=== PATIENT | female | born 1945 | race Caucasian/White ===

== ENCOUNTER → 2016-08-20 | Outpatient (CLI) | payer OTHER ==
[~2016-08-20] MED LIST: ACET-1256 PO; ALKA SELTZER PO; ASPEC81 PO; CLR10 PO; CYM/30 PO; LORA-741 PO; LOSA50TA6 PO; OXYSR10 PO; POLY335019 PO; PRLSR20 PO; RXC5 PO
[2016-08-20 13:31] LABS: BASO % 0.2 %; BASO ABS # 0.01 K/uL (0-0.2); COMPLETE YES; EOS % 2.3 %; ESTIMATED AVERAGE GLUCOSE 120 mg/dl; HA1C FLAG Normal (Normal); HEMATOCRIT 45.5 % (37-47); IG% 0.2 %; LYMPH % 32.8 %; LYMPH ABS # 1.83 K/uL (1.2-3.4); MEAN CELL VOLUME 91.7 fL (80-100); MEAN CORPUSCULAR HEMOGLOBIN 30.6 pg (25-34); MEAN CORPUSCULAR HGB CONC 33.4 g/dl (32-36); MEAN PLATELET VOLUME 10.8 fL (7.4-10.4); MONO % 9.3 %; NEUT % 55.2 %; PLATELET COUNT 246 K/uL (130-400); RED BLOOD COUNT 4.96 M/uL (4.2-5.4); WHITE BLOOD COUNT 5.58 K/uL (4.8-10.8)
[2016-08-20 18:15] LABS: ALT/SGPT 21 U/L (12-78); AST/SGOT 14 U/L (15-37); BLOOD UREA NITROGEN 15 mg/dl (7-18); BUN/CREATININE RATIO 17.1 (10-20); CALCIUM 9.5 mg/dl (8.5-10.1); CARBON DIOXIDE 28 mmol/L (21-32); CHLORIDE 108 mmol/L (98-107); CREATININE 0.86 mg/dl (0.60-1.20); GLUCOSE 125 mg/dl (70-99); SODIUM 142 mmol/L (136-145)
[2016-08-20 18:26] LABS: ALB/GLOB RATIO 1.2 (0.9-2); ALKALINE PHOSPHATASE 57 U/L (45-117); CHOLESTEROL 203 mg/dl (0-200); CHOLESTEROL/HDL RATIO 3.8; HDL CHOLESTEROL 53 mg/dl; LDL CHOLESTEROL CALCULATED 106 mg/dl; TRIGLYCERIDES 218 mg/dl (0-150); VERY LOW DENSITY LIPOPROT CALC 44 mg/dl
== END | disposition home or self-care (01) ==
LOC: C.LABMFLN 11:53
PROVIDERS: ATTEND Family Medicine
DX: I10 Essential (primary) hypertension (principal); E78.5 Hyperlipidemia, unspecified; R73.01 Impaired fasting glucose

== ENCOUNTER 2016-10-15 06:15 | Inpatient (IN) | payer OTHER ==
[2016-09-24 11:24] VITALS: BMI 31.0
--- NOTE | 2016-09-24 12:05 | PAT Medication Instructions ---
Service Date Sep 24, 2016. Current Home Medication List Acetaminophen (Tylenol), 1,000 MG PO PRN Duloxetine HCl (Cymbalta), 1 CAP PO QAM Loratadine (Claritin), 10 MG PO QAM Lorazepam (Ativan), 0.5 MG PO HS Losartan Potassium (Cozaar), 50 MG PO QAM Omeprazole (Prilosec), 40 MG PO PRN Polyethylene Glycol 3350 (Miralax), 17 GM PO QAM [Reanna Watrous], 1 TAB PO PRN Medication Instructions For Your Scheduled Surgery - Hold the following medications the morning of surgery: Polyethylene Glycol 3350 (Miralax), 17 GM PO QAM [Reanna Watrous], 1 TAB PO PRN Losartan Potassium (Cozaar), 50 MG PO QAM Loratadine (Claritin), 10 MG PO QAM - Take the following medications the morning of surgery with a sip of water OTHERWISE NOTHING TO EAT OR DRINK AFTER MIDNIGHT: Omeprazole (Prilosec), 40 MG PO PRN Acetaminophen (Tylenol), 1,000 MG PO PRN (may take if needed up to 4 hours prior to surgery) Duloxetine HCl (Cymbalta), 1 CAP PO QAM - Take the following medications as scheduled the night before surgery: Lorazepam (Ativan), 0.5 MG PO HS Acetaminophen (Tylenol), 1,000 MG PO PRN If you have any questions please call us at [phone] or [phone] or [phone]
--- NOTE | 2016-09-24 12:49 | DIAGNOSTIC IMAGING REPORT ---
CHEST PREADMISSION(PA/LAT) CLINICAL HISTORY: PAT preoperative evaluation COMPARISON STUDY: No previous studies for comparison. FINDINGS: The bones soft tissues and hemidiaphragms are normal. The cardiomediastinal silhouette is normal. The lungs are clear. The pulmonary vasculature is normal. IMPRESSION: Negative chest. Electronically signed by: Sukhwinder Earl M.D. 09/24/2016 12:47 PM Dictated Date/Time: 09/24/2016 12:47 PM
[2016-09-24 13:14] LABS: URINE APPEARANCE CLEAR (CLEAR); URINE BILIRUBIN NEG (NEG); URINE COLOR YELLOW; URINE NITRITE NEG (NEG); URINE SPECIFIC GRAVITY 1.009 (1.000-1.030); UROBILINOGEN NEG (NEG); ZZUR CULT IF INDIC CLEAN CATCH NO
[2016-09-24 13:16] LABS: MANUAL MICROSCOPIC REQUIRED? NO; REVIEW REQ? NO
[2016-09-24 13:19] LABS: INR 0.9 (0.9-1.1); PARTIAL THROMBOPLASTIN RATIO 1.1; PROTHROMBIN TIME (PATIENT) 10.1 SECONDS (9.0-12.0)
--- NOTE | 2016-10-12 12:32 | History and Physical ---
History & Physical Date Oct 12, 2016. Chief Complaint Right knee pain History of Present Illness The patient is a 71 year old female with complaints of Right knee pain. She states the pain is chronic and non-traumatic. She states it effects her ADL's. She has tried NSAIDs, cortisone injections and PT with no relief. She would like to proceed with a Right total knee arthroplasty. Past Medical/Surgical History PMHx: (1) Hypertension (2) Anxiety (3) Osteoarthritis (4) GERD PSHx; (1) Total hysterectomy (2) cholecystectomy (3) breast biopsy (4) Back fusion x 2 Additional History Hepatic Disease: No Endocrine Disorder: No Kidney Disease: No Hypertension: Yes Heart Disease: No Bleeding Tendencies: No Infectious Diseases: No Allergies Coded Allergies: Fentanyl (Unverified Allergy, Unknown, WITH PATCH NAUSEA AND VOMITING, ) Latex1 -Allergic Contact Dermititis (Unverified Allergy, Unknown, REDNESS RASH, 09/24/16) Lisinopril (Unverified Allergy, Unknown, COUGH, 09/24/16) Meloxicam (Unverified Allergy, Unknown, UNKNOWN, 09/24/16) Tramadol (Unverified Allergy, Unknown, DIZZINESS,GOOFY, 09/24/16) Home Medications Scheduled Acetaminophen (Tylenol), 1,000 MG PO PRN Duloxetine HCl (Cymbalta), 1 CAP PO QAM Loratadine (Claritin), 10 MG PO QAM Lorazepam (Ativan), 0.5 MG PO HS Losartan Potassium (Cozaar), 50 MG PO QAM Omeprazole (Prilosec), 40 MG PO PRN Polyethylene Glycol 3350 (Miralax), 17 GM PO QAM [Reanna [place]], 1 TAB PO PRN Physical Examination Skin: warm/dry, no rash Eyes: normal inspection ENT: normal ENT inspection Head: normocephalic, atraumatic Neck: supple, no adenopathy Respiratory/Chest: lungs clear, normal breath sounds Cardiovascular: regular rate, rhythm, no murmur Abdomen / GI: normal bowel sounds, non tender Extremities: normal inspection, + pertinent finding (Decreased knee ROM on the right side, Lateral joint pain.) Neurologic/Psych: no motor/sensory deficits, alert, oriented x 3 Diagnosis Right knee Primary osteoarthritis Plan of Treatment Patient has failed conservative therapy on NSAIDs, Cortisone injections and PT. We discussed surgical procedures. She would like to proceed with a Right Total Knee arthroplasty. She will be scheduled for a Right total knee arthroplasty. Risks and benefits to surgery were discussed that include but not limit to infection, DVT, pain, stiffness, need for revision surgery, damage to blood vessels, damage to nerves, PE, and anesthesia risks were all discussed with the patient and they wish to proceed. She will have Aspirin 81mg BID for DVT prophylaxis.
[~2016-10-15] VITALS: Ht 160 cm; Wt 79.5 kg
[2016-10-15] VITALS (8 sets, daily range): BP systolic 148–164; BP diastolic 87–105; PULSE 79–100; TEMP 36.5–36.9; O2SAT 95–98; Ht 160 cm; Wt 79.5 kg
[~2016-10-15 06:15] MED LIST changes: +ACETAMINOPHEN 500 MG TAB PO SCH; -ASPEC81 PO; +CEFAZOLIN 1000MG/55 ML D5W 55 ML IV SCH; +CeleBREX 200 MG CAP PO SCH; +DEXAMETHASONE 4 MG TAB PO SCH; +FAMOTIDINE 20 MG TAB PO SCH; +GABAPENTIN 300 MG CAP PO SCH; +LACTATED RINGER'S 1000ML 1,000 ML IV SCH; +LACTATED RINGER'S 1000ML 500 ML IV ONE; +LACTATED RINGER'S 1000ML IV SCH; +METOCLOPRAMIDE HCL 10 MG TAB PO SCH; -OXYSR10 PO; +ROPIVACAINE 5MG/ML 30 ML 150 MG, BUPIVACAINE/EPINEPHR 0.5% MPF 30 ML, DEXAMETHASONE INJ... INFIL SCH; -RXC5 PO; +VANCOMYCIN 1GM/270ML NSS IV SCH
[2016-10-15] MEDS ORDERED: BUPIVACAINE 0.5 % 5 MG/1 ML PF 10ML VIAL ONE (06:29)
[2016-10-15] MEDS ORDERED: PHENYLEPHRINE 100MCG/ML 5ML SYR ONE (07:10)
[2016-10-15] MEDS ORDERED: PROPOFOL IV EMULSION 10 MG/ML 20 ML VIAL IV ONE ×2 (07:10→09:07)
[2016-10-15] MEDS ORDERED: LIDOCAINE HCL 2% 2 ML VIAL (20MG/ML) ONE (07:10)
[2016-10-15] MEDS ORDERED: EpHEDrine SULFATE 50MG/5ML SYR ONE (07:10)
[2016-10-15] MEDS ORDERED: FENTANYL CITRATE INJ 50 MCG/1 ML 2 ML VIAL ONE (07:11)
[2016-10-15] MEDS ORDERED: MIDAZOLAM HCL 1 MG/ML 2ML VIAL ONE (07:11)
[2016-10-15] MEDS ORDERED: NURSING VERBAL MED ORDER STA (07:26)
--- NOTE | 2016-10-15 07:43 | History & Physical Bridge Note ---
H&P Re-Evaluation Bridge Note: I have examined the patient, reviewed the History & Physical and in the interval since the performance of the History & Physical I have noted the following changes of clinical significance: No changes noted
[2016-10-15] MEDS: TRANEXAMIC ACID AMP 1,000 MG in NSS 100ML IV SCH ×2 (07:52→08:00)
[2016-10-15] MEDS ORDERED: POVIDONE-IODINE OP SOLN 30 ML BTL ONE (07:58)
[2016-10-15] MEDS ORDERED: BACITRACIN 50000 UNIT VIAL ONE (07:58)
[2016-10-15] MEDS ORDERED: ATROPINE SULFATE 0.1 MG/ML 5ML SYR IV PRN (08:15)
[2016-10-15] MEDS ORDERED: ONDANSETRON INJ 2 MG/ML 2 ML VIAL IV PRN ×2 (08:15→10:30)
[2016-10-15] MEDS ORDERED: EpHEDrine SULFATE INJ 50 MG/ML AMP IV PRN (08:15)
[2016-10-15] MEDS ORDERED: BUPIVACAINE LIPOSOME 1/3% 266 MG/20 ML VIAL INFIL ONE (09:15)
[2016-10-15] MEDS ORDERED: BUPIVACAINE/EPINEPHRINE 0.25% 10 ML VIAL ONE (09:16)
[2016-10-15] MEDS ORDERED: SODIUM CHLORIDE 0.9% PF 50 ML VIAL ONE (09:17)
[2016-10-15] MEDS ORDERED: MAGNESIUM HYDROXIDE SUSP 30 ML UDC PO PRN (10:30)
[2016-10-15] MEDS ORDERED: ALUMINUM/MAGNESIUM/SIMETH (MAALOX MAX) 30 ML UDC PO PRN (10:30)
[2016-10-15] MEDS ORDERED: SOD PHOSPHATE/SOD BIPHOSPHATE ENEMA 132 ML BTL PR PRN (10:30)
[2016-10-15] MEDS ORDERED: BISACODYL 10 MG SUPP PR PRN (10:30)
[2016-10-15] MEDS ORDERED: ZOLPIDEM TARTRATE 5 MG TAB PO PRN (10:30)
--- NOTE | 2016-10-15 10:41 | DIAGNOSTIC IMAGING REPORT ---
TWO VIEWS RIGHT KNEE CLINICAL HISTORY: Postoperative examination. FINDINGS: AP and crosstable lateral portable views of the right knee are obtained. A right knee arthroplasty is in near anatomic alignment. There has been undersurface remodeling of the patella. No acute fracture is seen. There are expected postoperative changes around the knee including skin clips, soft tissue edema, and subcutaneous gas. IMPRESSION: Expected postoperative changes status post right knee arthroplasty. No acute fracture is seen. Electronically signed by: Aron Mccarthy M.D. 10/15/2016 10:40 AM Dictated Date/Time: 10/15/2016 10:40 AM
--- NOTE | 2016-10-15 11:31 | Anesthesiology Progress Note ---
Anesthesia Post Op Note Date & Time Oct 15, 2016 at 11:31 Vital Signs Pain Intensity: 0 Vital Signs Past 12 Hours Date Time Temp Pulse Resp B/P (MAP) Pulse Ox O2 Delivery O2 Flow Rate FiO2 10/15/16 10:45 36.2 90 16 137/85 98 Nasal Cannula 2 10/15/16 10:35 36.2 96 16 144/85 94 Nasal Cannula 2 10/15/16 10:25 96 16 140/94 96 Nasal Cannula 2 10/15/16 10:15 99 16 139/86 96 Mask 10 10/15/16 10:07 36.4 109 16 151/85 97 Mask 10 10/15/16 06:52 36.9 87 20 148/99 97 Room Air Notes Mental Status: alert / awake / arousable, participated in evaluation Pt Amnestic to Procedure: Yes Nausea / Vomiting: adequately controlled Pain: adequately controlled Airway Patency, RR, SpO2: stable & adequate BP & HR: stable & adequate Hydration State: stable & adequate Neuraxial Anesthesia: was administered, sensory block is resolving Anesthetic Complications: no major complications apparent
[2016-10-15] MEDS: SODIUM CHLORIDE 0.9% 1000ML 1,000 ML IV SCH ×2 (12:24→21:25)
[2016-10-15] MEDS: FERROUS GLUCONATE 324 MG TAB PO SCH ×2 (12:28→17:53)
--- NOTE | 2016-10-15 12:37 | [facility] Operative Report ---
Operative Report Operative Date Oct 15, 2016. Pre-Operative Diagnosis Right Knee Primary Osteoarthritis Post-Operative Diagnosis Right Knee Primary Osteoarthritis Procedure(s) Performed Right Total Knee Arthroplasty Surgeon Dr. Jose Pizano Scientific Technical Writer Surgeon(s) Catrachito Conner PA-C Estimated Blood Loss 50ML Findings above Specimens A. Right Knee Bone and Tissue Drains 0 Anesthesia spinal Complication(s) None Disposition Recovery Room / PACU Indications 71-year-old female with long-standing posterior arthritis the right knee. She is [id number]. She is failed conservative measures including injection and she is allergic to anti-inflammatories. She wishes to proceed with right total knee arthroplasty. Description of Procedure Risks benefits and alternatives of surgery including but not limited to infection DVT pain stiffness need for surgery damage to blood vessels damage to nerves or risks of anesthesia were discussed with the patient and she wished to proceed. Patient was identified in the laterality was confirmed and marked. She received a preoperative antibiotic is also a spinal anesthetic and a abductor canal block. A well-padded tourniquet was applied and then the limb was prepped and draped in standard manner with ChloraPrep. The limb was exsanguinated and the tourniquet was inflated. I made a standard anterior incision. I sharply incised the skin then utilized Bovie electrocautery as well as the aqua mantis to achieve hemostasis. I made a medial parapatellar arthrotomy immobilized the patella laterally. I then excised the anterior horns of the medial and lateral meniscus as well as the infrapatellar fat pad. I elevated a portion of the MCL off of the tibia. I then pinned into place a patient-matched distal femoral cutting guide and made my distal femoral resection. I then pinned into place a size 4 5 in 1 cutting guide. I made my anterior, posterior and chamfer cuts. I then excised the cruciates and the remaining portions of the menisci. I then pinned into place a patient- matched tibial cutting guide and made my tibial resection. I then pinned into place a size 3 tibia utilizing alignment rods to confirm rotation. I then cut for the post. Utilizing a lamina fitting supervisor and then removed posterior osteophytes off the femur. I then placed a trial femur into position and cut for the trochlear component. I then sequentially trialed to size 11 polyethylene. There was good soft tissue balancing and range of motion with this polyethylene. I then prepared the patella with a freehand cut utilizing sagittal saw. I sized and drilled for a size 32 patella. There was good tracking to the patella no lateral release was needed. All the trial components were removed. The deep tissues were anesthetized with and ortho mix solution. Then with Simplex HV with gentamicin cement I cemented my definitive components. Definitive components, [employer] 2: Femur 4 Tibia 3 Poly 11 Patella 32 oval Betadine soak was performed. The arthrotomy was closed with interrupted #1 Vicryl suture subcutaneous tissue was closed with interrupted 2-0 Vicryl suture and skin with jakob. Sterile dressings applied and the tourniquet was released. All needle and sponge counts were correct at the end of the procedure patient was transferred to the PACU in stable condition without apparent complication. The PA-C was necessary for assistance with procedure for assistance in positioning, prepping, draping, retraction and closure. I attest to the content of the Intraoperative Record and any orders documented therein. Any exceptions are noted below.
[2016-10-15] MEDS: OXYCODONE HCL IR 5 MG TAB (IMMEDIATE RELEASE) PO PRN ×2 (13:25→19:29)
[2016-10-15] MEDS: CEFAZOLIN IV 1,000 MG in DEXTROSE 5% 50ML 50 ML IV SCH ×2 (15:36→23:23)
[2016-10-15] MEDS ORDERED: OXYSR10 PO (16:52)
[2016-10-15] MEDS ORDERED: RXC5 PO (16:52)
[2016-10-15] MEDS ORDERED: LORAZEPAM 0.5 MG TAB PO SCH (21:00)
[2016-10-15] MEDS ORDERED: SENNA 8.6 MG TAB PO SCH (21:00)
[2016-10-15] MEDS: OXYCODONE HCL 10 MG TABCR (OXYCONTIN) PO SCH (21:24)
[2016-10-15] MEDS: DOCUSATE SODIUM 100 MG CAP PO SCH (21:25)
[2016-10-15] MEDS: ASPIRIN 81 MG ECTAB PO SCH (21:25)
[2016-10-15] MEDS: ACETAMINOPHEN 500 MG TAB PO SCH (21:26)
--- NOTE | 2016-10-15 21:40 | Medical Consult ---
Consultation Date of Consultation: Oct 15, 2016. Attending Physician: Jose Pizano M.D. Reason for Consultation: Elevated BP History of Present Illness Ms Galeas is a 71 yo F day 0 s/p R TKA today. We were consulted for elevated BP. The pt reports she has been on Losartan 50mg for years, but did not take it yet since it is an AM medication. She feels it is up due to the pain. She denies any visual changes or chest pain. She feels her knee pain is returning but it is manageable. Past Medical/Surgical History Medical Problems: Right knee DJD HTN PSHx R knee TKA Family History No pertinent FHx Social History Smoking Status: Never Smoker Alcohol Use: none Drug Use: none Marital Status: Housing Status: lives with family Occupation Status: retired Allergies Coded Allergies: Fentanyl (Unverified Allergy, Unknown, WITH PATCH NAUSEA AND VOMITING, 10/15) Latex1 -Allergic Contact Dermititis (Unverified Allergy, Unknown, REDNESS RASH, 10/15/16) Lisinopril (Unverified Allergy, Unknown, COUGH, 10/15/16) Tramadol (Unverified Allergy, Unknown, DIZZINESS,GOOFY, 10/15/16) Meloxicam (Unverified Adverse Reaction, Unknown, PT STATED IT JUST MADE HER DIZZY, HEAD FELT FUNNY, 10/15/16) Home Medications Reported Home Medications Medications Dose Route/Sig Max Daily Dose Days Date Category Oxycontin (Oxycodone HCl) 10 Mg Tabcr 10 Mg PO Q12 10/15/16 Rx Oxycodone HCl 5 Mg Tab 1-2 Tabs PO Q4-6H 10/15/16 Rx Tylenol (Acetaminophen) 500 Mg Tab 1,000 Mg PO PRN 09/24/16 Reported [Reanna Danielson] 1 Tab PO PRN 09/24/16 Reported Miralax (Polyethylene Glycol 3350) 1 Pow Pow 17 Gm PO QAM 09/24/16 Reported Prilosec (Omeprazole) 20 Mg Capcr 40 Mg PO PRN 09/24/16 Reported Cozaar (Losartan Potassium) 50 Mg Tab 50 Mg PO QAM 09/24/16 Reported Ativan (Lorazepam) 0.5 Mg Tab 0.5 Mg PO HS 09/24/16 Reported Claritin (Loratadine) 10 Mg Tab 10 Mg PO QAM 09/24/16 Reported Cymbalta (Duloxetine HCl) 30 Mg Cap 1 Cap PO QAM 30 09/24/16 Reported Current Inpatient Medications Current Inpatient Medications Medications (Trade) Dose Ordered Sig/Tylor Route Start Time Stop Time Status Last Admin Dose Admin Vancomycin HCl 270 ml @ 125 mls/hr PREOP IV 10/15/16 06:00 10/16/16 05:59 10/15/16 07:20 125 MLS/HR Sodium Chloride 1,000 ml @ 100 mls/hr Q10H IV 10/15/16 11:45 10/16/16 11:44 10/15/16 21:25 100 MLS/HR Cefazolin Sodium 1000 mg/Dextrose 55 ml @ 100 mls/hr Q8@0000,0800,1600 IV 10/15/16 16:00 10/16/16 00:32 10/15/16 15:36 100 MLS/HR Oxycodone HCl (Roxicodone Immediate Rel Tab) 1 TABLET FOR PAIN RATING... Q4H PRN PO 10/15/16 10:30 10/29/16 10:29 10/15/16 19:29 5 MG Oxycodone HCl (Oxycontin Tab) 10 mg Q12 PO 10/15/16 21:00 10/29/16 20:59 10/15/16 21:24 10 MG Acetaminophen (Tylenol Tab) 1,000 mg Q8 PO 10/15/16 22:00 11/14/16 21:59 10/15/16 21:26 1,000 MG Magnesium Hydroxide (Milk Of Magnesia Susp) 30 ml Q6H PRN PO 10/15/16 10:30 11/14/16 10:29 Bisacodyl (Dulcolax Supp) 10 mg DAILY PRN [place] 10/15/16 10:30 11/14/16 10:29 Sodium Biphosphate/ Sodium Phosphate (Fleet Enema) 132 ml DAILY PRN [place] 10/15/16 10:30 11/14/16 10:29 Senna (Senokot Tab) 17.2 mg HS PO 10/15/16 21:00 11/14/16 20:59 10/15/16 21:25 17.2 MG Docusate Sodium (coLACE CAP) 100 mg BID PO 10/15/16 21:00 11/14/16 20:59 10/15/16 21:25 100 MG Al Hydrox/Mg Hydrox/Simethicone (Maalox Max Susp) 15 ml Q4H PRN PO 10/15/16 10:30 11/14/16 10:29 Zolpidem Tartrate (Ambien Tab) 5 mg HSZ PRN PO 10/15/16 10:30 11/14/16 10:29 Multivitamins (Multivitamin Tab) 1 tab QAM PO 10/16/16 09:00 11/15/16 08:59 Ondansetron HCl (Zofran Inj) 4 mg Q6H PRN IV 10/15/16 10:30 11/14/16 10:29 Ferrous Gluconate (Ferrous Gluconate Tab) 324 mg TIDM PO 10/15/16 12:30 11/14/16 12:29 10/15/16 17:53 324 MG Pantoprazole Sodium (Protonix Tab) 40 mg QAM PO 10/16/16 09:00 11/15/16 08:59 Aspirin (Ecotrin Tab) 81 mg BID PO 10/15/16 21:00 11/14/16 20:59 10/15/16 21:25 81 MG Duloxetine HCl (Cymbalta Cap) 30 mg QAM PO 10/16/16 09:00 11/15/16 08:59 Loratadine (Claritin Tab) 10 mg QAM PO 10/16/16 09:00 11/15/16 08:59 Lorazepam (Ativan Tab) 0.5 mg HS PO 10/15/16 21:00 11/14/16 20:59 10/15/16 21:24 0.5 MG Losartan Potassium (coZAAR TAB) 50 mg QAM PO 10/16/16 09:00 11/15/16 08:59 Review of Systems See HPI for pertinent positives & negatives. A total of 10 systems reviewed and were otherwise negative. Physical Exam Date Time Temp Pulse Resp B/P (MAP) Pulse Ox O2 Delivery O2 Flow Rate FiO2 10/15/16 19:30 Room Air 10/15/16 15:30 Nasal Cannula 3.0 10/15/16 15:00 36.6 100 16 162/105 (124) 98 Nasal Cannula 3.0 10/15/16 14:00 87 18 164/98 (120) 98 10/15/16 13:01 89 16 162/102 (122) 95 Nasal Cannula 2.0 10/15/16 12:00 85 18 159/95 (116) 98 10/15/16 11:30 36.7 79 16 157/96 (116) 97 Nasal Cannula 2.0 10/15/16 11:00 98 Nasal Cannula 2.0 10/15/16 11:00 98 Nasal Cannula 2.0 10/15/16 11:00 36.5 92 16 163/88 (113) 95 Nasal Cannula 2.0 10/15/16 10:45 36.2 90 16 137/85 98 Nasal Cannula 2 10/15/16 10:35 36.2 96 16 144/85 94 Nasal Cannula 2 10/15/16 10:25 96 16 140/94 96 Nasal Cannula 2 10/15/16 10:15 99 16 139/86 96 Mask 10 10/15/16 10:07 36.4 109 16 151/85 97 Mask 10 10/15/16 06:52 36.9 87 20 148/99 97 Room Air General Appearance: WD/WN, no apparent distress, + thin Head: normocephalic, atraumatic Eyes: normal inspection ENT: hearing grossly normal Neck: supple, no JVD Respiratory/Chest: lungs clear, normal breath sounds, no respiratory distress Cardiovascular: regular rate, rhythm, no murmur, normal peripheral pulses Abdomen/GI: non tender Back: no CVA tenderness, no muscle spasm Extremities/Musculoskelatal: no calf tenderness Neurologic/Psych: alert, normal mood/affect, oriented x 3 Skin: no rash Assessment & Plan 71 yo F day 0 s/p R TKA, found to have mild elevation in BP, without evidence of end organ damage, likely due to pre-operatively holding her anti- hypertensives. Recommendations: - Losartan to be restarted tomorrow AM. Her elevated BP could be in relation to her pain, so will have the RN recheck after pain medications are given. - If her BP starts to elevate over night, would start Losartan PO at that time or provide Hydralazine 10mg IV q6h for SBP > 160 - BMP in AM to ensure renal fxn adequate. Thank you for allowing us to participate in the care of Ms Oconnor. Resident Physician Supervision Note: Pt seen/examined independently. I discussed the case with the resident and agree with the findings and plan as documented in the note. Any exceptions or clarifications are listed here: 71 y/o F HTN - post R TKA - medicine consulted due to post-op elevated BP OE AAO x 3 S1,2 R CTAB NT, ND No CCE P: Pt placed back on Losartan an PRN Hydralazine Discussed wt pt and resident Documented By: Dereck Elias Resident Tracking Resident Involvement: Resident Care Provided Care Provided: Adult Hospital Medicine
--- NOTE | 2016-10-15 21:58 | Discharge Instructions ---
Discharge Instructions Date of Service Oct 15, 2016. Admission Reason for Admission: Right Knee Osteoarthritis Discharge Discharge Diagnosis / Problem: S/P Right total knee arthroplasty Discharge Goals Goal(s): Decrease discomfort, Improve function Activity Recommendations Activity Limitations: per Instructions/Follow-up section . Instructions / Follow-Up Instructions / Follow-Up ACTIVITY RECOMMENDATIONS: SELF CARE INSTRUCTIONS AFTER TOTAL KNEE REPLACEMENT A. You may need to continue a physical therapy program after discharge from the hospital. There are several options available to you. Your doctor will assist you in selecting the best one for you. 1. An out-patient facility 2 to 3 times a week for therapy or home therapy. 2. Continue working on all exercises taught to you in the hospital. Your goals should be to increase bending of your knee to 90 degrees and beyond and to fully straighten your knee. B. You may progress at your own pace from walking with a walker or crutches to a cane; then to no assistive devices. C. Make walking a part of your daily routine. Be up as much as comfortable with rest periods throughout the day. Rest with leg elevation is very important. Use the ice wrap frequently for the first 3-4 weeks. D. There are no restrictions on activities. You may ride in a car, shop, participate in soil science professor and all social activities. E. Wear the long elastic stockings (MIR hose) 20 hours a day for 2 weeks after surgery. They can be removed several times a day for laundering and for a bath. F. You may shower, no tub baths until cleared by your doctor. SPECIAL CARE INSTRUCTIONS: VERY IMPORTANT TO READ AND REVIEW A. There are a few signs you need to watch for after you are home. Call [facility] if you notice any of the followin. Increased severe knee pain. Some pain is expected especially when you exercise. 2. Increased swelling in your leg or knee; pain or swelling of the calf muscle in either lower leg. 3. Any fluid drainage from the incision. 4. Shortness of breath or chest pain. B. Please call [facility] at if you have any concerns or questions about your operation or recovery. The doctor or his nurse will return your call promptly. C. You must take antibiotics before dental work, bladder, bowel or other surgery. Your doctor will provide you with a permanent care to carry describing this precaution. IMPORTANT: * REMEMBER TO TAKE ASPIRIN, 81 MG, TWICE DAILY FOR 4 WEEKS UNLESS OTHERWISE DIRECTED. THIS IS YOUR BLOOD THINNER. * HIGH RISK PATIENTS MAY BE PRESCRIBED A STRONGER BLOOD THINNER. THIS WILL BE PROVIDED AT DISCHARGE. * CALL IF INCREASED PAIN, REDNESS, DRAINAGE OR FEVER GREATER THAT 101. * WEAR MIR HOSE 20 HOURS PER DAY FOR 2 WEEKS. * YOU MAY HAVE A LARGE BAND-AID LIKE DRESSING (SILVERON). THIS WILL REMAIN ON YOUR INCISION FOR 7 DAYS, THEN CAN BE REMOVED. IF INCISION IS LEAKING THROUGH DRESSING, CALL THE OFFICE . FOLLOW UP VISIT: If appointment is not already scheduled: Please call [facility] to make a follow-up appointment for 2 weeks after your surgery at . Current Hospital Diet Patient's current hospital diet: Regular Diet Discharge Diet Recommended Diet: Regular Diet Procedures Procedures Performed: Right Total Knee Arthroplasty Pending Studies Studies pending at discharge: no Laboratory Results Hemoglobin A1c Test 08/20/16 12:03 Range/Units Estimated Average Glucose 120 mg/dl Hemoglobin A1c 5.8 H 4.5-5.6 % Lipid Panel Test 08/20/16 12:03 Range/Units Triglycerides Level 218 H 0-150 mg/dl Cholesterol Level 203 H 0-200 mg/dl HDL Cholesterol 53 mg/dl Cholesterol/HDL Ratio 3.8 LDL Cholesterol, Calculated 106 mg/dl Medical Emergencies . Who to Call and When: Medical Emergencies: If at any time you feel your situation is an emergency, please call 911 immediately. . Non-Emergent Contact Non-Emergency issues call your: Surgeon Call Non-Emergent contact if: temperature is above 101.5, your pain is worsening, wound has increased drainage, wound has increased redness . "Provider Documentation" section prepared by Catrachito Conner. . VTE Core Measure Inpt VTE Proph given/why not?: Other Anticoagulation [place] Drug Monitoring Program Search Results: patient reviewed within database, no issues identified
[2016-10-16 04:00] VITALS: BP 154/92; PULSE 97; TEMP 36.6; O2SAT 96
[2016-10-16] MEDS: ACETAMINOPHEN 500 MG TAB PO SCH ×2 (05:51→12:52)
[2016-10-16 06:02] LABS: HEMATOCRIT 35.2 % (37-47); MEAN CELL VOLUME 91.4 fL (80-100); MEAN CORPUSCULAR HEMOGLOBIN 31.4 pg (25-34); MEAN CORPUSCULAR HGB CONC 34.4 g/dl (32-36); PLATELET COUNT 212 K/uL (130-400); RED BLOOD COUNT 3.85 M/uL (4.2-5.4); WHITE BLOOD COUNT 13.01 K/uL (4.8-10.8)
[2016-10-16 06:11] LABS: PROTHROMBIN TIME (PATIENT) 10.2 SECONDS (9.0-12.0)
[2016-10-16 06:43] LABS: BUN/CREATININE RATIO 14.6 (10-20); CALCIUM 9.2 mg/dl (8.5-10.1); CREATININE 0.97 mg/dl (0.60-1.20); POTASSIUM 4.1 mmol/L (3.5-5.1)
--- NOTE | 2016-10-16 06:51 | Orthopedic Progress Note ---
Orthopedic Progress Note Date of Service Oct 16, 2016. Subjective Post OP Day: 1 Reports: feeling well, pain controlled w PO medications, Denies: complaints, chest pain, SOB, nausea / vomiting, light headedness, calf pain Additional Notes: Patient states she is feeling well. She states there is some calf pain when she moves her calf but it is ok overall. Objective calves soft nontender, N/V intact, capillary refill less than 2 sec., dressing C /D/I, A&O x3, toes mobile Dressing was clean, dry and intact. Her toes were mobile. No significant pain with palpation of the calf muscle or Norris test. Date Time Temp Pulse Resp B/P (MAP) Pulse Ox O2 Delivery O2 Flow Rate FiO2 10/16/16 04:00 36.6 97 20 154/92 (112) 96 Room Air 10/15/16 22:55 36.5 92 16 149/87 (107) 95 Room Air 10/15/16 19:30 Room Air 10/15/16 15:30 Nasal Cannula 3.0 10/15/16 15:00 36.6 100 16 162/105 (124) 98 Nasal Cannula 3.0 10/15/16 14:00 87 18 164/98 (120) 98 10/15/16 13:01 89 16 162/102 (122) 95 Nasal Cannula 2.0 10/15/16 12:00 85 18 159/95 (116) 98 10/15/16 11:30 36.7 79 16 157/96 (116) 97 Nasal Cannula 2.0 10/15/16 11:00 98 Nasal Cannula 2.0 10/15/16 11:00 98 Nasal Cannula 2.0 10/15/16 11:00 36.5 92 16 163/88 (113) 95 Nasal Cannula 2.0 10/15/16 10:45 36.2 90 16 137/85 98 Nasal Cannula 2 10/15/16 10:35 36.2 96 16 144/85 94 Nasal Cannula 2 10/15/16 10:25 96 16 140/94 96 Nasal Cannula 2 10/15/16 10:15 99 16 139/86 96 Mask 10 10/15/16 10:07 36.4 109 16 151/85 97 Mask 10 10/15/16 06:52 36.9 87 20 148/99 97 Room Air Laboratory Results 24 Hours: Test 10/16/16 05:14 Hematocrit 35.2 % Hemoglobin 12.1 g/dL Prothromb Time International Ratio 1.0 Prothrombin Time 10.2 SECONDS Assessment & Plan Assessment: POD #1 Right TKA Plan: PT/OT Discharge planning - Home with H/H DVT prophylaxis - ASA Patient is doing well. She will be seen by social work professor and PT this morning. If everything is ok, we could get her discharged today. There is no drain. Agree with above Inhouse Planning Pain Management: Oxycontin, Oxy IR DVT Prophylaxis: TEDs, SCDs, ASA Discharge Planning Discharge Planning: home with home health Pain Management: Oxycontin, Oxy IR DVT Prophylaxis: TEDs, ASA Therapy: Physical Therapy
[2016-10-16] MEDS: SODIUM CHLORIDE 0.9% 1000ML 1,000 ML IV SCH (06:52)
[2016-10-16] MEDS ORDERED: ASPEC81 PO (07:04)
[2016-10-16 07:20] VITALS: BP 144/81; PULSE 92; TEMP 36.7; O2SAT 93
[2016-10-16] MEDS ORDERED: NURSING VERBAL MED ORDER ONE (08:15)
[2016-10-16] MEDS: OXYCODONE HCL 10 MG TABCR (OXYCONTIN) PO SCH (08:22)
[2016-10-16] MEDS: ASPIRIN 81 MG ECTAB PO SCH (08:22)
[2016-10-16] MEDS: DOCUSATE SODIUM 100 MG CAP PO SCH (08:22)
[2016-10-16] MEDS: FERROUS GLUCONATE 324 MG TAB PO SCH ×2 (08:23→12:52)
[2016-10-16] MEDS ORDERED: POLYETHYLENE (MIRALAX) 17 GM PACK PO PRN (08:30)
[2016-10-16] MEDS ORDERED: LOSARTAN POTASSIUM 50 MG TAB PO SCH (09:00)
[2016-10-16] MEDS ORDERED: DULOXETINE (CYMBALTA) 30 MG CAP PO SCH (09:00)
[2016-10-16] MEDS ORDERED: MULTIVITAMIN TAB PO SCH (09:00)
[2016-10-16] MEDS ORDERED: PANTOprazole SOD 40 MG TAB PO SCH (09:00)
[2016-10-16] MEDS ORDERED: LORATADINE 10 MG TAB PO SCH (09:00)
--- NOTE | 2016-10-16 11:29 | Family Medicine Progress Note ---
Progress Note Date of Service Oct 16, 2016. Subjective Pt evaluation today including: conversation w/ patient, physical exam, chart review, conversation w/ environmental remediation consultant, review of inpatient medication list Pain: well controlled Voiding: no voiding problems pain well controlled mild SOB at rest hasn't had bowel movement, takes miralax at home Constitutional: No fever, No chills Respiratory: + dyspnea at rest, No cough, No sputum, No wheezing Cardiovascular: No chest pain, No edema, No palpitations Abdomen: No pain, No nausea, No vomiting Medications Current Inpatient Medications Medications (Trade) Dose Ordered Sig/Tylor Route Start Time Stop Time Status Last Admin Dose Admin Sodium Chloride 1,000 ml @ 100 mls/hr Q10H IV 10/15/16 11:45 10/16/16 11:44 10/16/16 06:52 100 MLS/HR Oxycodone HCl (Roxicodone Immediate Rel Tab) 1 TABLET FOR PAIN RATING... Q4H PRN PO 10/15/16 10:30 10/29/16 10:29 10/15/16 19:29 5 MG Oxycodone HCl (Oxycontin Tab) 10 mg Q12 PO 10/15/16 21:00 10/29/16 20:59 10/16/16 08:22 10 MG Acetaminophen (Tylenol Tab) 1,000 mg Q8 PO 10/15/16 22:00 11/14/16 21:59 10/16/16 05:51 1,000 MG Magnesium Hydroxide (Milk Of Magnesia Susp) 30 ml Q6H PRN PO 10/15/16 10:30 11/14/16 10:29 Bisacodyl (Dulcolax Supp) 10 mg DAILY PRN IA 10/15/16 10:30 11/14/16 10:29 Sodium Biphosphate/ Sodium Phosphate (Fleet Enema) 132 ml DAILY PRN IA 10/15/16 10:30 11/14/16 10:29 Senna (Senokot Tab) 17.2 mg HS PO 10/15/16 21:00 11/14/16 20:59 10/15/16 21:25 17.2 MG Docusate Sodium (coLACE CAP) 100 mg BID PO 10/15/16 21:00 11/14/16 20:59 10/16/16 08:22 100 MG Al Hydrox/Mg Hydrox/Simethicone (Maalox Max Susp) 15 ml Q4H PRN PO 10/15/16 10:30 11/14/16 10:29 Zolpidem Tartrate (Ambien Tab) 5 mg HSZ PRN PO 10/15/16 10:30 11/14/16 10:29 Multivitamins (Multivitamin Tab) 1 tab QAM PO 10/16/16 09:00 11/15/16 08:59 10/16/16 08:22 1 TAB Ondansetron HCl (Zofran Inj) 4 mg Q6H PRN IV 10/15/16 10:30 11/14/16 10:29 Ferrous Gluconate (Ferrous Gluconate Tab) 324 mg TIDM PO 10/15/16 12:30 11/14/16 12:29 10/16/16 08:23 324 MG Pantoprazole Sodium (Protonix Tab) 40 mg QAM PO 10/16/16 09:00 11/15/16 08:59 10/16/16 08:22 40 MG Aspirin (Ecotrin Tab) 81 mg BID PO 10/15/16 21:00 11/14/16 20:59 10/16/16 08:22 81 MG Duloxetine HCl (Cymbalta Cap) 30 mg QAM PO 10/16/16 09:00 11/15/16 08:59 10/16/16 08:23 30 MG Loratadine (Claritin Tab) 10 mg QAM PO 10/16/16 09:00 11/15/16 08:59 10/16/16 08:23 10 MG Lorazepam (Ativan Tab) 0.5 mg HS PO 10/15/16 21:00 11/14/16 20:59 10/15/16 21:24 0.5 MG Losartan Potassium (coZAAR TAB) 50 mg QAM PO 10/16/16 09:00 11/15/16 08:59 10/16/16 08:22 50 MG Polyethylene (Miralax Powder Packet) 17 gm Q8H PRN PO 10/16/16 08:30 11/15/16 08:29 Objective Vital Signs Date Time Temp Pulse Resp B/P (MAP) Pulse Ox O2 Delivery O2 Flow Rate FiO2 10/16/16 07:20 36.7 92 18 144/81 (102) 93 Room Air 10/16/16 07:18 Room Air 10/16/16 04:00 36.6 97 20 154/92 (112) 96 Room Air 10/15/16 22:55 36.5 92 16 149/87 (107) 95 Room Air 10/15/16 19:30 Room Air 10/15/16 15:30 Nasal Cannula 3.0 10/15/16 15:00 36.6 100 16 162/105 (124) 98 Nasal Cannula 3.0 10/15/16 14:00 87 18 164/98 (120) 98 10/15/16 13:01 89 16 162/102 (122) 95 Nasal Cannula 2.0 10/15/16 12:00 85 18 159/95 (116) 98 10/15/16 11:30 36.7 79 16 157/96 (116) 97 Nasal Cannula 2.0 Physical Exam General Appearance: WD/WN, no apparent distress ENT: hearing grossly normal, pharynx normal Neck: no adenopathy, no JVD Respiratory/Chest: lungs clear, no respiratory distress, no accessory muscle use Cardiovascular: regular rate, rhythm, no edema, no JVD, no murmur Abdomen: normal bowel sounds, non tender, soft Extremities: normal range of motion, non-tender, no calf tenderness Neurologic/Psychiatric: alert, normal mood/affect, oriented x 3 Laboratory Results Results Past 24 Hours Test 10/16/16 05:14 Range/Units White Blood Count 13.01 4.8-10.8 K/uL Red Blood Count 3.85 4.2-5.4 M/uL Hemoglobin 12.1 12.0-16.0 g/dL Hematocrit 35.2 37-47 % Mean Corpuscular Volume 91.4 80-100 fL Mean Corpuscular Hemoglobin 31.4 25-34 pg Mean Corpuscular Hemoglobin Concent 34.4 32-36 g/dl RDW Standard Deviation 45.1 36.4-46.3 fL RDW Coefficient of Variation 13.5 11.5-14.5 % Platelet Count 212 130-400 K/uL Mean Platelet Volume 11.0 7.4-10.4 fL Prothrombin Time 10.2 9.0-12.0 SECONDS Prothromb Time International Ratio 1.0 0.9-1.1 Sodium Level 141 136-145 mmol/L Potassium Level 4.1 3.5-5.1 mmol/L Chloride Level 109 98-107 mmol/L Carbon Dioxide Level 27 21-32 mmol/L Anion Gap 5.0 3-11 mmol/L Blood Urea Nitrogen 14 7-18 mg/dl Creatinine 0.97 0.60-1.20 mg/dl Est Creatinine Clear Calc Drug Dose 51.6 ml/min Estimated GFR () 67.2 Estimated GFR (Non- 57.9 BUN/Creatinine Ratio 14.6 10-20 Random Glucose 141 70-99 mg/dl Calcium Level 9.2 8.5-10.1 mg/dl Assessment and Plan 71 yo F day 0 s/p R TKA, found to have mild elevation in BP, without evidence of end organ damage, likely due to pre-operatively holding her anti- hypertensives. Recommendations: - Losartan restarted today. Her elevated BP could be in relation to her pain. She states her pain is well controlled - Hydralazine 10mg IV q6h for SBP > 160 - BMP showed normal renal function - Patient will follow up with PCP as outpatient for further blood pressure management Thank you for allowing us to participate in the care of Ms Oconnor.
[2016-10-16 11:55] VITALS: BP 144/81; PULSE 92; TEMP 36.7; O2SAT 93
--- NOTE | 2016-10-16 13:42 | Anesthesiology Progress Note ---
Anesthesia Post Op Note Date & Time Oct 16, 2016 at 13:41 Vital Signs Pain Intensity: 5.0 Vital Signs Past 12 Hours Date Time Temp Pulse Resp B/P (MAP) Pulse Ox O2 Delivery O2 Flow Rate FiO2 10/16/16 11:55 36.7 92 18 93 Room Air 10/16/16 07:20 36.7 92 18 144/81 (102) 93 Room Air 10/16/16 07:18 Room Air 10/16/16 04:00 36.6 97 20 154/92 (112) 96 Room Air Notes Mental Status: alert / awake / arousable, participated in evaluation Pt Amnestic to Procedure: Yes Nausea / Vomiting: adequately controlled Pain: adequately controlled Airway Patency, RR, SpO2: stable & adequate BP & HR: stable & adequate Hydration State: stable & adequate Neuraxial Anesthesia: was administered, sensory block resolved Anesthetic Complications: no major complications apparent
--- NOTE | 2016-10-19 08:08 | Discharge Summary ---
Orthopedic Discharge Summary Admission Date/Reason Oct 15, 2016 at 07:37 Right Knee Osteoarthritis. Discharge Date/Disposition Oct 16, 2016 Home with services Diagnosis Principal Diagnosis: S/P Right Total Knee Arthroplasty Medication Reconciliation As per discharge instructions Admission Physical Exam As per Admitting History & Physical. Hospital Course POD#1 patient was feeling well. Her pain was controlled with PO medications. Her dressing was clean, dry and intact. She was neurovascularly intact as well. It was discussed with her about going home with Home health. She was discharged POD #1. Discharge Instructions Please refer to the electronic Patient Visit Report (Discharge Instructions) for additional information.
== END 2016-10-16 13:22 | disposition home health service (06) | DRG 470 ==
LOC: C.ACU 06:15 → C.3E 07:37 → ENRESERV 10:30
PROVIDERS: ADMIT Orthopaedic Surgery; ATTEND Orthopaedic Surgery
PROC: 0SRC0J9 Replacement of Right Knee Joint with Synthetic Substitute, Cemented, Open Approach (ICD-10-PCS; principal; 2016-10-15 08:15)
DX: M17.11 Unilateral primary osteoarthritis, right knee (principal); I10 Essential (primary) hypertension; F41.9 Anxiety disorder, unspecified; M19.90 Unspecified osteoarthritis, unspecified site; K21.9 Gastro-esophageal reflux disease without esophagitis; Z90.710 Acquired absence of both cervix and uterus; Z90.49 Acquired absence of other specified parts of digestive tract; Z98.1 Arthrodesis status; Z79.1 Long term (current) use of non-steroidal anti-inflammatories (NSAID); Z88.6 Allergy status to analgesic agent; Z91.040 Latex allergy status; Z88.8 Allergy status to other drugs, medicaments and biological substances; Z79.899 Other long term (current) drug therapy